=== PATIENT | female | born 1955 | race Caucasian/White ===

== ENCOUNTER 2017-10-26 17:01 | Emergency (ER) | payer OTHER ==
[~2017-10-26] VITALS: Ht 154.9 cm; Wt 74.8 kg
[2017-10-26] MEDS ORDERED: FLEXERIL PO (18:49)
[2017-10-26 18:57] VITALS: BP 155/102
== END 2017-10-26 18:57 | disposition home or self-care (01) ==
LOC: M.ERS 17:01
DX: M54.5 Low back pain (principal); F17.200 Nicotine dependence, unspecified, uncomplicated; Z88.0 Allergy status to penicillin